=== PATIENT | female | born 1990 | race Caucasian/White ===

== ENCOUNTER 2020-10-21 16:13 | Emergency (ER) | payer OTHER, SELFPAY ==
[2020-10-21 16:22] VITALS: BP 127/85; PULSE 98; RESP 16; TEMP 36; O2SAT 96; BMI 27.9
--- NOTE | 2020-10-21 17:15 | ED.NAVMDI ---
HPI - Nausea/Vomiting/Diarrhea General Chief complaint: Nausea/Vomiting/Diarrhea Stated complaint: med reaction Time Seen by Provider: 10/21/20 16:45 Source: patient Mode of arrival: ambulatory Limitations: no limitations History of Present Illness HPI Narrative: 29-year-old female with past medical history of diabetes presents with nausea, vomiting, for several days. Started Trulicity on Thursday. She does not describe any fevers, chills, chest pain or pressure, palpitations, abdominal distention, dysuria, hematuria, constipation, hematochezia, melena, dizziness, lightheadedness, or edema. MD elicited complaint: nausea, vomiting and diarrhea Onset (ago): day(s) Description of vomiting: watery and bilious Description of diarrhea: watery Associated nausea: Yes Associated abdominal pain: No Pain consistency: intermittent Severity: moderate Exacerbating factors: vomiting Context: new medication Associated symptoms: denies other symptoms Treatment prior to arrival: none Related Data Previous Rx's Medication Instructions Recorded nitrofurantoin monohyd/m-cryst 100 mg PO Q12H 7 Days #14 cap 10/21/20 [Macrobid] ondansetron HCl [Zofran] 4 mg PO Q8H PRN #10 tab 10/21/20 phenazopyridine [Pyridium] 200 mg PO TID PRN #6 tab 10/21/20 Allergies Allergy/AdvReac Type Severity Reaction Status Date / Time shellfish derived Allergy Severe SWELLING, Verified 10/21/20 16:24 [SHELLFISH DERIVED] DIFFICULTY BREATHING Review of Systems Review of Systems: Constitutional: No Weight loss, No Fever, No Chills, No Night Sweats, No Fatigue, No Malaise ENT/Mouth: No Hearing loss, No Ear Pain, No Nasal Congestion, No Sinus Pain, No Hoarseness, No sore throat, No Rhinorrhea, No Swallowing Difficulty Eyes: No Eye Pain, No Swelling, No Redness, No Foreign Body, No Discharge, No Vision Changes Cardiovascular: No Chest Pain, No SOB, No Dyspnea on Exertion, No Orthopnea, No Edema, No Palpitations Respiratory: No Cough, No Sputum, No Wheezing, No Smoke Exposure, No Dyspnea Gastrointestinal: Positive Nausea, Positive Vomiting, positive Diarrhea, positive abdominal Pain, No Hematochezia, No Melena Genitourinary: no irregular bleeding, No Dysuria, No Urinary Frequency, No Hematuria, No Urinary Incontinence, No Urgency, No Flank Pain, No Urinary Flow Changes, No Hesitancy Musculoskeletal: No joint pain, No Myalgias, No Joint Swelling Skin: No Skin Lesions, No rash Neuro: No Weakness, No Numbness, No Paresthesias, No Loss of Consciousness, No Dizziness, No Headache Psych: No Anxiety/Panic, No Depression, No SI/HI/AH/VH, No Social Issues Heme/Lymph: No Bruising, No Bleeding,No Lymphadenopathy Endocrine: No Polyuria, No Polydipsia, No Temperature Intolerance Yes all other systems are reviewed and are negative Gastrointestinal: Gastrointestinal: Reports nausea PMFSH Past Medical History Attestation statement: The following information was validated with the patient. Source: old records reviewed Medical History Diabetes Social History Social History Alcohol intake: never Patient Tobacco Use Status: Never used Tobacco Use of substances other than those prescribed or required for medical reasons: No Advance Directives: No Advance Directives Information Provided: Yes Patient : No Physical Exam Vital Signs: Vital Signs: Last Vital Signs Temp 96.8 F 10/21/20 17:32 Pulse 88 10/21/20 17:32 Resp 16 10/21/20 17:32 BP 92/55 L 10/21/20 17:32 Pulse Ox 96 10/21/20 17:32 Body Mass Index 27.9 Appearance: Alert. Oriented X3. No acute distress. Head: Normal external exam. Normocephalic. Atraumatic. No [place] signs noted. No raccoon eyes noted Eyes: PERRLA. EOMI. Conjunctiva and sclera normal. Eyelids normal. ENT: Pharynx normal. Uvula midline. Moist mucous membranes. No trismus noted. No drooling noted. No muffled voice noted. Neck: Normal inspection. Neck supple. No adenopathy. CVS: Normal heart rate and rhythm. Heart sound normal. No murmurs noted. Pulses equal to all extremities. Respiratory: No respiratory distress. Painless inspiration. Breath sounds normal. No wheezes/rales/rhonchi noted. Chest nontender. No accessory muscle usage noted or decreased air movement noted. Abdomen: Soft and nontender. Bowel sounds normal in all 4 quadrants. No distention noted. No organomegaly noted. No visible injury noted. Back: No CVA tenderness. Full range of motion noted. Skin: Skin warm and dry. Normal skin color. Normal skin turgor. No rashes/lesions/lacerations noted. Extremities: No lower extremity edema. Extremities exhibit normal range of motion. Extremities nontender. Neuro: cranial nerves 2-12 intact, no focal neural deficits, strength 5/5 to all extremities, No motor deficit. No sensory deficit. Course Course Course Narrative: 29-year-old female with past medical history of diabetes presents with nausea vomiting and diarrhea after starting Trulicity on Thursday. Plan of care is for CBC, Chem 7, LFTs, lipase, fluid resuscitation and antiemetics. Lab values are unremarkable, urinalysis indicates UTI. Patient does state to feel much better after receiving some Zofran and some fluids. Will treat with Macrobid and Pyridium. Patient does not report any urinary symptoms. Lipase mildly elevated, discussion with patient regarding mild pancreatitis and for patient to follow up with the person who prescribed the Trulicity to discontinue this medication patient verbalized understanding of and agrees to plan of care discharge home. MDM - Nausea/Vomiting/Diarrhea Lab Data Result diagrams: 10/21/20 17:23 10/21/20 17:23 Labs: Lab Results 10/21/20 10/21/20 10/21/20 Range/Units 17:23 17:23 17:25 WBC 10.5 (4.8-10.8) X10*3/uL RBC 4.71 (4.20-5.50) X10*6/uL Hgb 13.6 (12.0-16.0) g/dl Hct 41.6 (37-47) % MCV 88.3 (80-98) fL MCH 28.9 (27.0-33.0) pg MCHC 32.7 (31.0-35.0) g/dl RDW 12.4 (11.0-16.0) % Plt Count 274 (160-400) X10*3/uL MPV 10.7 (9.4-12.3) fL Immature Gran % (Auto) 0.3 (0.0-0.4) % Neut % (Auto) 65.4 (45-73) % Lymph % (Auto) 28.2 (20-40) % [place] % (Auto) 5.1 (2-11) % Eos % (Auto) 0.8 (0-4) % Baso % (Auto) 0.2 (0-2) % Lymph # (Auto) 3.0 (1.2-4.9) X10*3/uL [place] # (Auto) 0.5 (0.1-1.2) X10*3/uL Eos # (Auto) 0.1 (0.0-0.4) X10*3/uL Baso # (Auto) 0.0 (0.0-0.2) X10*3/uL Abs Immat Gran (auto) 0.03 (0.00-0.03) X10*3/uL Absolute Neuts (auto) 6.8 (2.0-8.3) X10*3/uL Absolute Nucleated RBC 0.000 (0.0-0.012) X10*3/uL Nucleated RBC % (auto) 0.0 (0.0-0.2) /100WBC Sodium 136 (135-145) mmol/L Potassium 3.9 (3.3-5.1) mmol/L Chloride 102 (96-108) mmol/L Carbon Dioxide 26 (22-29) mmol/L Anion Gap 12 (12-20) BUN 11 (9-16) mg/dL Creatinine 0.71 (0.5-1.4) mg/dL Estim Creat Clear Calc 116.2 Estimated GFR > 60 Random Glucose 164 H (60-115) mg/dL Calcium 9.2 (8.4-10.2) mg/dL Total Bilirubin 0.7 (0.0-1.0) mg/dL Direct Bilirubin 0.3 (0.0-0.5) mg/dL AST 13 (5-31) U/L ALT 25 (0-31) U/L Alkaline Phosphatase 66 (39-117) U/L Total Protein 6.9 (6.5-8.0) g/dL Albumin 4.2 (3.5-5.0) g/dL Lipase 119 H (8-78) U/L Urine Color Urine Appearance Urine pH (5.0-8.0) Ur Specific [place] (1.005-1.025) Urine Protein (NEG-TRACE) MG/DL Urine Glucose (UA) (NEG) MG/DL Urine Ketones (NEG) MG/DL Urine Blood (NEG) Urine Nitrite (NEG) Ur Leukocyte Esterase (NEG) Urine RBC (0) /HPF Urine WBC (0-4) /HPF Ur Squamous Epith Cells /LPF Urine Bacteria /LPF Urine Test (NEGATIVE) Coronavirus (PCR) NEGATIVE (Negative) Influenza Type A (PCR) NEGATIVE (Negative) Influenza Type B (PCR) NEGATIVE (Negative) RSV RNA Qual (PCR) NEGATIVE (Negative) 10/21/20 10/21/20 Range/Units 17:42 17:42 WBC (4.8-10.8) X10*3/uL RBC (4.20-5.50) X10*6/uL Hgb (12.0-16.0) g/dl Hct (37-47) % MCV (80-98) fL MCH (27.0-33.0) pg MCHC (31.0-35.0) g/dl RDW (11.0-16.0) % Plt Count (160-400) X10*3/uL MPV (9.4-12.3) fL Immature Gran % (Auto) (0.0-0.4) % Neut % (Auto) (45-73) % Lymph % (Auto) (20-40) % [place] % (Auto) (2-11) % Eos % (Auto) (0-4) % Baso % (Auto) (0-2) % Lymph # (Auto) (1.2-4.9) X10*3/uL [place] # (Auto) (0.1-1.2) X10*3/uL Eos # (Auto) (0.0-0.4) X10*3/uL Baso # (Auto) (0.0-0.2) X10*3/uL Abs Immat Gran (auto) (0.00-0.03) X10*3/uL Absolute Neuts (auto) (2.0-8.3) X10*3/uL Absolute Nucleated RBC (0.0-0.012) X10*3/uL Nucleated RBC % (auto) (0.0-0.2) /100WBC Sodium (135-145) mmol/L Potassium (3.3-5.1) mmol/L Chloride (96-108) mmol/L Carbon Dioxide (22-29) mmol/L Anion Gap (12-20) BUN (9-16) mg/dL Creatinine (0.5-1.4) mg/dL Estim Creat Clear Calc Estimated GFR Random Glucose (60-115) mg/dL Calcium (8.4-10.2) mg/dL Total Bilirubin (0.0-1.0) mg/dL Direct Bilirubin (0.0-0.5) mg/dL AST (5-31) U/L ALT (0-31) U/L Alkaline Phosphatase (39-117) U/L Total Protein (6.5-8.0) g/dL Albumin (3.5-5.0) g/dL Lipase (8-78) U/L Urine Color YELLOW Urine Appearance HAZY Urine pH 6.0 (5.0-8.0) Ur Specific [place] >= 1.030 H (1.005-1.025) Urine Protein 1+ H (NEG-TRACE) MG/DL Urine Glucose (UA) 250 H (NEG) MG/DL Urine Ketones 15 (NEG) MG/DL Urine Blood NEG (NEG) Urine Nitrite POS H (NEG) Ur Leukocyte Esterase NEG (NEG) Urine RBC 0 (0) /HPF Urine WBC 1-4 (0-4) /HPF Ur Squamous Epith Cells 2+ /LPF Urine Bacteria 4+ /LPF Urine Test NEGATIVE (NEGATIVE) Coronavirus (PCR) (Negative) Influenza Type A (PCR) (Negative) Influenza Type B (PCR) (Negative) RSV RNA Qual (PCR) (Negative) Discharge Plan Discharge Clinical Impression: Urinary tract infection Qualifiers: Urinary tract infection type: acute cystitis Hematuria presence: without hematuria Qualified Code(s): N30.00 - Acute cystitis without hematuria Patient Disposition: Home, Self-Care Instructions: Urinary Tract Infection in Women (ED) Additional Instructions: You were evaluated for nausea vomiting and diarrhea that started after using Trulicity. Please follow-up with the doctor or prescriber that gave you the prescription for Trulicity. Please let them know your side effects. Your blood work is normal, your liver enzymes are normal. Your lipase is mildly elevated. Please drink plenty of fluids and stop using Trulicity. Urinalysis is positive for UTI. Please take Macrobid twice a day for the next 7 days. Use Pyridium as needed for bladder spasms and pain. I prescribed Zofran, please take this medication as needed for nausea and vomiting. Thank you for choosing this emergency department for evaluation. Please follow-up with primary care physician as needed. Return to the emergency department for any new, concerning, or worsening symptoms. Prescriptions: New nitrofurantoin monohyd/m-cryst [Macrobid] 100 mg capsule 100 mg PO Q12H 7 Days Qty: 14 RF: 0 ondansetron HCl [Zofran] 4 mg tablet 4 mg PO Q8H PRN (Reason: nausea and vomiting) Qty: 10 RF: 0 phenazopyridine [Pyridium] 200 mg tablet 200 mg PO TID PRN (Reason: pain) Qty: 6 RF: 0 Stand Alone Forms: Work/School Release Interventions: ED Discharge Assessment Last Done: 10/21/20 19:03 Discharge Date/Time: 10/21/20 19:04
[2020-10-21] MEDS: ondansetron HCL 4 MG/2 ML VIAL IVPUSH (17:29)
[2020-10-21] MEDS: Ketorolac Tromethamine 30 MG/ML VIAL IVPUSH (17:30)
[2020-10-21] MEDS: 0.9 % Sodium Chloride 1,000 ML 999 ML IVCONT (17:31)
[2020-10-21 17:32] VITALS: BP 92/55; PULSE 88; RESP 16; TEMP 36; O2SAT 96
[2020-10-21 17:35] LABS: MANUAL DIFF FLAG NO
[2020-10-21 17:40] LABS: Basophils Percent Auto 0.2 % (0-2); Eosinophils Absolute Auto 0.1 X10*3/uL (0.0-0.4); Eosinophils Percent Auto 0.8 % (0-4); Hematocrit 41.6 % (37-47); Hemoglobin 13.6 g/dl (12.0-16.0); Imm Gran Abs Auto 0.03 X10*3/uL (0.00-0.03); Imm Gran Pct Auto 0.3 % (0.0-0.4); Lymphocytes Percent Auto 28.2 % (20-40); Mean Corpuscular HGB Conc 32.7 g/dl (31.0-35.0); Mean Corpuscular Hemoglobin 28.9 pg (27.0-33.0); Mean Corpuscular Volume 88.3 fL (80-98); Mean Platelet Volume 10.7 fL (9.4-12.3); Monocytes Absolute Auto 0.5 X10*3/uL (0.1-1.2); Monocytes Percent Auto 5.1 % (2-11); Neutrophils Absolute Auto 6.8 X10*3/uL (2.0-8.3); Neutrophils Percent Auto 65.4 % (45-73); Platelet Count 274 X10*3/uL (160-400); Red Blood Count 4.71 X10*6/uL (4.20-5.50); Red Cell Distribution Width 12.4 % (11.0-16.0); White Blood Count 10.5 X10*3/uL (4.8-10.8)
[2020-10-21 18:03] LABS: Glucose Urine UA 250 MG/DL (NEG); Leukocyte Esterase Urine NEG (NEG); Nitrite Urine POS (NEG); Specific Gravity - Urine >= 1.030 (1.005-1.025); UACC Culture Trigger YES; Urine Blood NEG (NEG); Urine Ketones 15 MG/DL (NEG); Urine Protein 1+ MG/DL (NEG-TRACE)
[2020-10-21 18:04] LABS: Appearance Urine HAZY; Bacteria Urine 4+ /LPF; Color Urine YELLOW; RBC Urine 0 /HPF (0); Squamous Epithelial Cell Urine 2+ /LPF
[2020-10-21 18:05] LABS: Anion Gap 12 (12-20); Blood Urea Nitrogen 11 mg/dL (9-16); Calcium 9.2 mg/dL (8.4-10.2); Carbon Dioxide 26 mmol/L (22-29); Chloride 102 mmol/L (96-108); Creatinine Clr Calc Pharmacy 116.2; Estimated Glomerular Filt Rate > 60; Glucose Random 164 mg/dL (60-115); Potassium 3.9 mmol/L (3.3-5.1); Sodium 136 mmol/L (135-145)
[2020-10-21 18:10] LABS: UPreg QC Valid YES; Urine Pregnancy NEGATIVE (NEGATIVE)
[2020-10-21 18:14] LABS: Influenza A PCR NEGATIVE (Negative); Influenza B PCR NEGATIVE (Negative); Resp Syncy Virus RNA Qual PCR NEGATIVE (Negative); SARS COV2 PCR INHOUSE NEGATIVE (Negative)
[2020-10-21 18:36] LABS: Alanine Aminotransferase 25 U/L (0-31); Albumin Level 4.2 g/dL (3.5-5.0); Alkaline Phosphatase 66 U/L (39-117); Aspartate Amino Transferase 13 U/L (5-31); Bilirubin Direct 0.3 mg/dL (0.0-0.5); Bilirubin Total 0.7 mg/dL (0.0-1.0); Total Protein 6.9 g/dL (6.5-8.0)
[2020-10-21] MEDS: Nitrofurantoin Monohyd/M-Cryst 100 MG CAPSULE PO (18:44)
[2020-10-21 18:48] LABS: Lipase 119 U/L (8-78)
== END 2020-10-21 19:04 | disposition home or self-care (01) ==
PROVIDERS: Nurse Practitioner Family; Emergency Provider Internal Medicine
DX: N30.00 Acute cystitis without hematuria (principal); Z20.822 Contact with and (suspected) exposure to COVID-19; R11.2 Nausea with vomiting, unspecified; R19.7 Diarrhea, unspecified; E11.9 Type 2 diabetes mellitus without complications
CPT/HCPCS: 0241U; 36415; 80048; 80076; 81001; 81003; 81025; 83690; 85025; 87086; 87088; 87186; 96361; 96374; 96375; 99284; 99285; J1885; J2405

== ENCOUNTER 2020-12-29 12:27 | Emergency (ER) | payer OTHER, SELFPAY ==
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
[2020-12-29 12:33] VITALS: BP 103/72; PULSE 86; RESP 16; TEMP 36.6; O2SAT 98; BMI 26.9
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
[2020-12-29 14:35] LABS: UPreg QC Valid YES; Urine Pregnancy NEGATIVE (NEGATIVE)
== END 2020-12-29 15:36 | disposition home or self-care (01) ==
PROVIDERS: Physician Assistant; Emergency Provider Emergency Medicine Emergency Medical Services
DX: S16.1XXA Strain of muscle, fascia and tendon at neck level, initial encounter (principal); E11.9 Type 2 diabetes mellitus without complications; V89.2XXA Person injured in unspecified motor-vehicle accident, traffic, initial encounter; Y93.9 Activity, unspecified; Y92.411 Interstate highway as the place of occurrence of the external cause; Y99.9 Unspecified external cause status
CPT/HCPCS: 70450; 72125; 81025; 99283; 99284

== ENCOUNTER 2022-05-01 12:42 | Emergency (ER) | payer OTHER, SELFPAY ==
[2022-05-01 12:51] VITALS: BP 128/60; PULSE 98; O2SAT 98
[2022-05-01 13:09] LABS: MANUAL DIFF FLAG NO
[2022-05-01 13:10] VITALS: BP 110/56; PULSE 92; RESP 17; TEMP 37.1; O2SAT 99
[2022-05-01 13:14] LABS: Basophils Percent Auto 0.2 % (0-2); Hematocrit 32.1 % (37.0-47.0); Imm Gran Abs Auto 0.01 X10*3/uL (0.00-0.03); Imm Gran Pct Auto 0.2 % (0.0-0.4); Lymphocytes Absolute Auto 0.3 X10*3/uL (1.2-4.9); Lymphocytes Percent Auto 5.2 % (20-40); Mean Corpuscular HGB Conc 34.3 g/dl (31.0-35.0); Mean Corpuscular Hemoglobin 29.2 pg (27.0-33.0); Mean Corpuscular Volume 85.1 fL (80.0-98.0); Monocytes Absolute Auto 0.3 X10*3/uL (0.1-1.2); Monocytes Percent Auto 5.5 % (2-11); Neutrophils Absolute Auto 5.5 x10*3/uL (2.0-8.3); Neutrophils Percent Auto 88.9 % (45-73); Platelet Count 222 X10*3/uL (160-400); Red Blood Count 3.77 X10*6/uL (4.20-5.50); White Blood Count 6.2 X10*3/uL (4.8-10.8)
[2022-05-01] MEDS: 0.9 % Sodium Chloride 1,000 ML 999 ML IVCONT (13:21)
--- NOTE | 2022-05-01 13:22 | ED.GENADULT ---
HPI - General Adult General Chief complaint: General Medical Stated complaint: +COVID, [id number], 20weeks preg per EMS Time Seen by Provider: 05/01/22 12:49 Source: patient Mode of arrival: ambulatory Limitations: no limitations History of Present Illness HPI narrative: Patient is a 31 year old female at approximately 11 weeks gestation with a PMH of type II Diabetes mellitus currently on metformin and gestational diabetes presents to the ED today after a positive home COVID test last night. Patient states that her 8 year old son tested positive for COVID two days ago but reports nobody else is sick at home. Patient reports severe body aches and lower back pain as well as throbbing headache and sensitivity to light. Patient also has associated symptoms of nausea and two episodes of vomiting prior to coming to the ED. Patient was seen 3 days ago via Telehealth by [facility] of which her estimated delivery date was noted to be 11/20/2022. Patient states that she does not remember when her LMP was. Patient reports prior history of spontaneous at about 12 weeks gestation and induced at 8 weeks gestation. Patient was diagnosed with gestational diabetes when she was with her 8 year old living son who was conceived via Ceasaren section without any complications after surgery. Patient denies fever, abdominal pain, abnormal vaginal discharge, vaginal bleeding or fluid gush from vagina. Patient denies any other issues, concerns or complains at this time. MD complaint: covid + at home now c N/V and body aches Onset (ago): hour(s) (at 3am this jaron. ) Location: head and back Radiation: non-radiation Severity: severe Severity scale (1-10): 8 Quality: aching Pain Consistency: constant Relieving factors: none Exacerbating factors: none Associated symptoms: headaches, loss of appetite, malaise, nausea/vomiting and weakness Treatments prior to arrival: none Related Data Previous Rx's Medication Instructions Recorded nitrofurantoin 100 mg PO Q12H 7 days #14 caps 10/21/20 monohydrate/macrocrystals 100 mg capsule (Macrobid) ondansetron HCl 4 mg tablet 4 mg PO Q8H PRN nausea and 10/21/20 (Zofran) vomiting #10 tabs phenazopyridine 200 mg tablet 200 mg PO TID PRN pain 6 doses #6 10/21/20 (Pyridium) tabs cyclobenzaprine 10 mg tablet 10 mg PO TID PRN muscle spasm #10 12/29/20 tabs ibuprofen 600 mg tablet 600 mg PO Q8H PRN pain #14 tabs 12/29/20 lidocaine 5 % topical patch 1 patch topical DAILY #15 ea 12/29/20 (Lidoderm) acetaminophen 500 mg tablet 1,000 mg PO QID PRN fever or pain 05/01/22 (Tylenol Extra Strength) #14 tabs ondansetron HCl 4 mg tablet 4 mg PO Q6-8H PRN nausea and 05/01/22 vomiting #20 tabs Allergies Allergy/AdvReac Type Severity Reaction Status Date / Time shellfish derived Allergy Severe SWELLING, Verified 10/21/20 16:24 [SHELLFISH DERIVED] DIFFICULTY BREATHING Review of Systems Review of Systems: Constitutional : No Weight loss, No Fever, No Chills, No Night Sweats, No Fatigue, + Malaise ENT/Mouth : No Hearing loss, No Ear Pain, No Nasal Congestion, No Sinus Pain, No Hoarseness, No sore throat, No Rhinorrhea, No Swallowing Difficulty Eyes: No Eye Pain, No Swelling, No Redness, No Foreign Body, No Discharge, No Vision Changes Cardiovascular : No Chest Pain, No SOB, No Dyspnea on Exertion, No Orthopnea, No Edema, No Palpitations Respiratory : No Cough, No Sputum, No Wheezing, No Smoke Exposure, No Dyspnea Gastrointestinal : + Nausea, + Vomiting, No Diarrhea, No Constipation, No abdominal Pain, No Hematochezia, No Melena Genitourinary : no irregular bleeding, No Dysuria, No Urinary Frequency, No Hematuria, No Urinary Incontinence, No Urgency, No Flank Pain, No Urinary Flow Changes, No Hesitancy Musculoskeletal : + joint pain, + Myalgias, No Joint Swelling Skin : No Skin Lesions, No rash Neuro : + Weakness, No Numbness, No Paresthesias, No Loss of Consciousness, + Dizziness, + Headache Psych : No Anxiety/Panic, No Depression, No SI/HI/AH/VH, No Social Issues, Heme/Lymph: No Bruising, No Bleeding,No Lymphadenopathy Endocrine : No Polyuria, No Polydipsia, No Temperature Intolerance Yes all other systems are reviewed and are negative [facility] Past Medical History Attestation statement: The following information was validated with the patient. Source: old records reviewed and nursing notes reviewed Medical History Diabetes : 4 Para: 1 Total number of abortions (spontaneous and elective): 2 Hx Last Menstrual Period: Patient unsure of LMP Social History Social History Alcohol intake: never Patient Tobacco Use Status: Never used Tobacco Advance Directives: No Advance Directives Information Provided: No Physical Exam ED Vital Signs: Vital Signs - 24 hr 05/01/22 13:10 Temperature 98.8 F Pulse Rate 92 Respiratory Rate 17 Blood Pressure 110/56 L Pulse Oximetry 99 Oxygen Delivery Method Room Air BMI result Body Mass Index 27.6 vital signs have been reviewed and appeared to be correct. Blood pressure is 110/56. Heart rate normal. Respiration rate normal. Temperature normal. Oxygen saturation normal. Appearance: Alert. Oriented X3. No acute respiratory distress. Patient was uncomfortable and assuming different laying positions in hospital bed. Head: Normal external exam. Normocephalic. Atraumatic. Eyes: PERRLA. EOMI. Conjunctiva and sclera normal. Eyelids normal. ENT: EAC normal. TM's Normal. Pharynx normal. Uvula midline. Moist mucous membranes. No lesions/ulcerations or masses noted on the tongue. Normal voice. No trismus noted. No drooling noted. No muffled voice noted. Neck: Normal inspection. Neck supple. FROM. Thyroid Normal. No tracheal deviation noted. No crepitus is noted. No meningeal signs. No neck mass noted. No signs of trauma noted. CVS: Normal heart rate and rhythm. Heart sound normal. No murmurs/rales/gallops. Respiratory: No respiratory distress. Painless inspiration. Breath sounds normal. No wheezes/rales/rhonchi noted. Chest nontender. No signs of trauma noted. No accessory muscle usage noted or decreased air movement noted. No signs of trauma. Abdomen: Soft and non tender. Bowel sounds normal in all 4 quadrants. No visible injury noted. No guarding. Back: No CVA tenderness. Full range of motion noted. Non tender. No signs of trauma. Patient neuro intact bilaterally and distally on all 4 extremities. No rashes/lesion/induration/fluctuance or signs of infection noted. Skin: Skin warm and dry. Normal skin color. Normal skin turgor. No rashes/lesions/lacerations noted. Extremities: No lower extremity edema. No calf tenderness is noted. Extremities exhibit normal range of motion and nontender. Neuro: Oriented X 3. No motor deficit. No sensory deficit. Normal steady gait. No focal neuro deficits noted. CN's II-XII intact bilaterally? Vascular: + radial pulses/+ 2 distal pedal pulses/+2 dorsalis pedis b/l. Normal cap refill. No cyanosis noted to upper extremity nails and lower extremity toes nails. Const General: cooperative, no acute distress and alert Orientation/consciousness: patient oriented x3 Limitations: no limitations Neuro General: patient oriented x3 Course Course Course Narrative: Patient is a 31 year old female at approximately 11 weeks gestation with a PMH of type II Diabetes mellitus currently on metformin and gestational diabetes presents to the ED today after a positive home COVID test last night. Patient reports associated symptoms of severe body aches and lower back pain as well as nausea, vomiting, throbbing headache and sensitivity to light. Patient denies fever,abdominal pain, abnormal vaginal discharge, vaginal bleeding or fluid gush from vagina. Patient had a BP of 110/56 with all other vitals within normal limit. On physical exam , patient was alert and oriented in no acute respiratory distress but was uncomfortable and changing positions in bed. Her abdomen was soft and non tender to palpation with bowel sounds noted in all 4 quadrants. Patient had active FROM of upper and lower extremities with no tenderness to palpation of patient's lower back. Plan: IV fluids Zofran 4mg PO q8h prn for nausea Labs; CBCw/ diff: RBC -3.77, H/H - 11/32 CMP- Sodium- 132, CO2- 21, BUN- 5, random glucose- 190, magnesium- 1.3, total protein- 6.0 beta HCG, quant- [id number]/ml -Patient has been referred to [facility] for monoclonal antibody therapy due to high risk factors including current and history of type II diabetes. Reevaluation(s) Reevaluation #1: Repeat labs have improved patient's sodium is now 135. Her magnesium is 2.0. Her UA revealed glucose and ketones otherwise no evidence of UTI. Acetone level was negative. Patient now tolerating p.o. fluids/solids. Therefore at this time patient can be discharged with instructions return if any new or worsening symptoms to follow up with OBGYN/ PCP and to continue taking her previously prescribed medications as previously prescribed along with the short course of Zofran. Patient understands agrees with this plan. Time: 18:49 Medications Administered Discontinued Medications Generic Name Dose Route Start Last Admin Trade Name Roberta PRN Reason Stop Dose Admin Acetaminophen 975 mg 05/01/22 14:18 05/01/22 15:50 Acetaminophen 325 Mg Tablet PO 05/01/22 14:19 Not Given ONCE ONE Acetaminophen 975 mg 05/01/22 15:18 05/01/22 15:51 Acetaminophen 325 Mg Tablet PO 05/01/22 15:19 975 mg ONCE ONE Administration Sodium Chloride 1,000 mls @ 999 mls/hr 05/01/22 13:00 05/01/22 14:48 Ns IVCONT 05/01/22 14:00 Infused .Q1H1M NGOC Infusion Magnesium Sulfate 2 gm in 50 mls @ 25 mls/hr 05/01/22 14:20 05/01/22 17:23 Magnesium Sulfate/H2o IV 05/01/22 16:19 Infused ONCE ONE Infusion Ondansetron HCl 4 mg 05/01/22 12:56 05/01/22 13:27 Ondansetron Hcl 4 Mg/2 Ml Vial IVPUSH 05/01/22 12:57 4 mg ONCE ONE Administration Medical Decision Making Medical Decision Making Discussion of management with other physician/healthcare provider/other source (e.g., hospitalist, sap pp consultant, behavioral health): Discussion w/other physician/healthcare provider Management of the patient was discussed with: Counseling Center Manager (Dr. Gerry RUSSELL) Recommended the following to MARYELLEN Oates:? Check heart rate, IV hydration, Zofran p.r.n. nausea and vomiting, magnesium replacement, then p.o. challenge with diabetic diet. if tolerated restart the patient on her usual metformin , diabetic diet , and discharge home with the following instructions: Zofran 4 mg p.o. Q 8 p.r.n. nausea and vomiting, Tylenol 650 mg p.o. q.6 p.r.n. fever 100.4 and above to prevent the risk of teratogenicity of fever in the 1st trimester in . The patient is a candidate for monoclonal antibodies, request to be sent on the patient be have to receive monoclonal antibodies as soon as possible at [facility], The patient is to come back to emergency room in case of fever above 100.4, nausea and vomiting, shortness of breath, vaginal bleeding or pelvic pain, Close follow-up with her OBGYN Lab Attestation: I reviewed the patient's lab results. Non-ED record review: Review of External (Non-ED) Record ([facility] was consulted to find out the patient's gestational age via phone) Chronic conditions affecting care (e.g., diabetes, HTN): Chronic conditions affecting care (e.g., diabetes, HTN) Patient?s care impacted by: Diabetes Critical Care Time Critical Care Time Critical Care Time: Yes Total Critical Care Time: 60 Attestation: I personally attest to this time spent taking care of the patient Discharge Plan Discharge Clinical Impression: COVID-19, Low blood magnesium level, Acute dehydration, Nausea & vomiting Patient Disposition: Home, Self-Care Additional Instructions: Tylenol 650 mg p.o. q.6 p.r.n. fever 100.4 and above to prevent the risk of teratogenicity of fever in the 1st trimester in . return if any new or worsening symptoms. Follow up with your OBGYN. Prescriptions: New ondansetron HCl 4 mg tablet 4 mg PO Q6-8H PRN (Reason: nausea and vomiting) Qty: 20 0RF acetaminophen [Tylenol Extra Strength] 500 mg tablet 1,000 mg PO QID PRN (Reason: fever or pain) Qty: 14 0RF No Action nitrofurantoin monohyd/m-cryst [Macrobid] 100 mg capsule 100 mg PO Q12H 7 Days Qty: 14 0RF Rx Instructions: must administer with a meal/food ondansetron HCl [Zofran] 4 mg tablet 4 mg PO Q8H PRN (Reason: nausea and vomiting) Qty: 10 0RF Rx Instructions: Please dispense sublingual tablets phenazopyridine [Pyridium] 200 mg tablet 200 mg PO TID PRN (Reason: pain) Qty: 6 0RF cyclobenzaprine 10 mg tablet 10 mg PO TID PRN (Reason: muscle spasm) Qty: 10 0RF lidocaine [Lidoderm] 5 % adhesive patch,medicated 1 patch topical DAILY Qty: 15 0RF Rx Instructions: leave on most painful area for up to 12 hrs ibuprofen 600 mg tablet 600 mg PO Q8H PRN (Reason: pain) Qty: 14 0RF Referrals: Physician,Nonstaff [Primary Care Provider] - 5 days (your pcp) Stand Alone Forms: Work/School Release
[2022-05-01 13:26] LABS: Alanine Aminotransferase 13 U/L (0-31); Albumin Level 3.7 g/dL (3.5-5.0); Alkaline Phosphatase 46 U/L (39-117); Anion Gap 12 (12-20); Aspartate Amino Transferase 13 U/L (5-31); Bilirubin Total 0.5 mg/dL (0.0-1.0); Blood Urea Nitrogen 5 mg/dL (9-16); Carbon Dioxide 21 mmol/L (22-29); Chloride 102 mmol/L (96-108); Estimated Glomerular Filt Rate > 60; Glucose Random 190 mg/dL (60-115); Potassium 3.4 mmol/L (3.3-5.1); Sodium 132 mmol/L (135-145)
[2022-05-01] MEDS: ondansetron HCL 4 MG/2 ML VIAL IVPUSH (13:27)
--- NOTE | 2022-05-01 13:41 | PC.NURSE ---
pt ambulatory from stretcher to bed , sts her headache is horrible sts she is sensitive to light and sound. sts she is approc 16-20 weeks however she has not has any ob-raise driller followup- labs pending including HCG and magnesium
[2022-05-01 13:49] LABS: HCG Quantitative 75690 mIU/mL
[2022-05-01 14:17] LABS: Magnesium 1.3 mg/dL (1.6-2.6)
--- NOTE | 2022-05-01 14:36 | P.CONOB_ITS ---
OB Consult Note - [facility] Data Service Date: 05/01/22 Primary Care Provider: Nonstaff Physician Elidia Carvajal was consulted on Hermelinda Quintanilla who is a 31 year old with unknown gestational a with a PMH of type II Diabetes mellitus currently on metformin presents to the ED today after a positive home COVID test last night. The patient is complaining of back pain, body aches and as well as throbbing headache and sensitivity to light, associated nausea and two episodes of vomiting prior to coming to the ED. The patient is 11 weeks of gestation, was seen at [facility] few weeks ago , and had an ultrasound with an EDC of 30 October 2022, but the patient is unsure. The patient denies fever, abdominal pain, abnormal vaginal discharge, vaginal bleeding or leakage of fluid. The patient not take her metformin last 2 days. In the emergency room on presentation 1 L of LR was given to the patient and the following workup was done: CBC showed no leukocytosis, H&H 11/32.1, normal platelets. Blood sugar of 190 with negative acetones, normal anion gap, repeat blood sugar 132 Magnesium 1.3 and sodium 132 OB PMFSH Past Medical History Medical History Diabetes Social History Social History Alcohol intake: never Patient Tobacco Use Status: Never used Tobacco Advance Directives: No Advance Directives Information Provided: No Meds Allergies Allergy/AdvReac Type Severity Reaction Status Date / Time shellfish derived Allergy Severe SWELLING, Verified 10/21/20 16:24 [SHELLFISH DERIVED] DIFFICULTY BREATHING Active Medications: Current Medications Magnesium Sulfate (Magnesium Sulfate/H2o) 2 gm in 50 mls @ 25 mls/hr IV ONCE ONE Stop: 05/01/22 16:19 OB Flowsheet OB Flowsheet & Tools History 4 Elective abortions Para 1 Spontaneous abortions Hx # Term Pregnancies Ectopic pregnancies Hx # Pregnancies Multiple births OB Physical Exam Physical Exam Additional Comments: Physical exam reported by MARYELLEN Oates to be within normal OB Consult Results Labs CBC & Chem 7: 05/01/22 13:04 05/01/22 13:04 Labs: Short CBC 05/01/22 Range/Units 13:04 WBC 6.2 (4.8-10.8) X10*3/uL Hgb 11.0 L (12.0-16.0) g/dl Hct 32.1 L (37.0-47.0) % Plt Count 222 (160-400) X10*3/uL BMP 05/01/22 13:04 Sodium 132 L Potassium 3.4 Chloride 102 Carbon Dioxide 21 L BUN 5 L Creatinine 0.69 Calcium 9.0 Liver Function 05/01/22 Range/Units 13:04 Total Bilirubin 0.5 (0.0-1.0) mg/dL AST 13 (5-31) U/L ALT 13 (0-31) U/L Alkaline Phosphatase 46 (39-117) U/L Albumin 3.7 (3.5-5.0) g/dL OB - CN: A/P Assessment and Plan (1) : Status: Acute Assessment and Plan: Recommended the following to MARYELLEN Oates: Check heart rate, IV hydration, Zofran p.r.n. nausea and vomiting, magnesium replacement, then p.o. challenge with diabetic diet. if tolerated restart the patient on her usual metformin , diabetic diet , and discharge home with the following instructions: Zofran 4 mg p.o. Q 8 p.r.n. nausea and vomiting, Tylenol 650 mg p.o. q.6 p.r.n. fever 100.4 and above to prevent the risk of teratogenicity of fever in the 1st trimester in . The patient is a candidate for monoclonal antibodies, request to be sent on the patient be have to receive monoclonal antibodies as soon as possible at [facility], The patient is to come back to emergency room in case of fever above 100.4, nausea and vomiting, shortness of breath, vaginal bleeding or pelvic pain, Close follow-up with her OBGYN I spent a total of 20 minutes reviewing the chart, communicating to the ER provider and documenting in the medical record
[2022-05-01 14:46] LABS: Acetone, serum QL Negative (Negative)
[2022-05-01] MEDS: Magnesium Sulfate/H2O 2 GM/50 ML PIGGYBACK IV (14:46)
[2022-05-01 15:30] LABS: Glucose, Whole Blood 133 mg/dL (60-115)
[2022-05-01] MEDS: Acetaminophen 325 MG TABLET 975 MG PO (15:51)
[2022-05-01 16:46] VITALS: BMI 27.6
--- NOTE | 2022-05-01 17:23 | PC.NURSE ---
pt rec 2gm magnesium via IV, pt was able to tolerate crackers, gingerale, and string cheese without nausea and vomiting. sts he pain is much better talking on phone interacting appropriately with nurse. provider aware, repeat mag level to be collected
[2022-05-01 18:15] LABS: Appearance Urine Cloudy; Color Urine Yellow; Glucose Urine UA >=1000 mg/dL (Negative); Leukocyte Esterase Urine Negative (Negative); Nitrite Urine Negative (Negative); Specific Gravity - Urine >= 1.030 (1.005-1.025); UMIC TRIGGER UACC YES; Urine Blood Negative (Negative); Urine Ketones 80 mg/dL (Negative); Urine Protein Trace mg/dL (Neg-Trace)
[2022-05-01 18:20] LABS: Bacteria Urine 4+ (None Seen); Hyaline Casts Urine 0-2 /LPF (0-2); RBC Urine 0-2 /HPF (0-2); WBC Urine 0-5 /HPF (0-5)
[2022-05-01 18:34] LABS: Anion Gap 11 (12-20); Blood Urea Nitrogen 5 mg/dL (9-16); Calcium 8.2 mg/dL (8.4-10.2); Carbon Dioxide 22 mmol/L (22-29); Chloride 105 mmol/L (96-108); Creatinine Clr Calc Pharmacy 127.8; Estimated Glomerular Filt Rate > 60; Glucose Random 243 mg/dL (60-115); Potassium 3.4 mmol/L (3.3-5.1); Sodium 135 mmol/L (135-145)
== END 2022-05-01 19:27 | disposition home or self-care (01) ==
PROVIDERS: Physician Assistant Medical; Emergency Provider Emergency Medicine
DX: O98.511 Other viral diseases complicating pregnancy, first trimester (principal); Z3A.11 11 weeks gestation of pregnancy; U07.1 COVID-19; Z79.899 Other long term (current) drug therapy
CPT/HCPCS: 36415; 80048; 80053; 81001; 82009; 82947; 83735; 84702; 85025; 96361; 96365; 96375; 99283; 99284; J2405; J3475

== ENCOUNTER 2022-05-30 22:56 | Emergency (ER) | payer OTHER, SELFPAY ==
--- NOTE | ~2022-05-30 | US_ITS ---
EXAMINATION: OBSTETRIC ULTRASOUND - SECOND TRIMESTER CLINICAL INFORMATION: Vaginal bleeding without cramping. COMPARISON: None TECHNIQUE: Transabdominal imaging of the uterus was performed utilizing najera scale and color doppler technique, with m-mode imaging. FINDINGS: Single live intrauterine fetus with cardiac activity detected at 156 bpm. movement is present. Amniotic fluid within normal limits, 7.36 cm. Anterior marginal placenta, grade 1/2. No perigestational hemorrhage. Cervix measures 4.6 cm and is closed. anatomy is normal. Biometric measurements as follows: Biparietal diameter: 3.23 cm corresponding to gestational age of 16 weeks 1 day. Head circumference: 12.24 cm corresponding to gestational age of 16 weeks 1 day. Abdominal circumference: 11.03 cm corresponding to a gestational age of 17 weeks, 0 days. Femur length: 2.03 cm corresponding to gestational age of 16 weeks, 1 day. Maternal ovaries normal in size and appearance. US/US OB limited IMPRESSION: * Single live intrauterine fetus with estimated gestational age by ultrasound of 16 weeks, 3 days, for an estimated date of delivery 11/12/2022. * Estimated weight 156 g (34th percentile). * Normal anatomy. * No perigestational hemorrhage. * Marginal placenta. Placentas usually rise through the second trimester, however consider follow-up to ensure.
[2022-05-30 23:03] VITALS: BP 115/66; PULSE 103; RESP 18; TEMP 36.4; O2SAT 99; BMI 25.7
--- OUTSIDE RECORDS SUMMARY | 2022-05-30 23:27 | XMS_ITS | Continuity of Care Document ---
:1990 Author Organization [facility] Address [address] [place] [id number]- Care Team Providers Name Role Phone Not on Staff, PCP Primary Care Physician Unavailable Encounter [facility] Date(s): 03/17/22 - 04/16/[address] [address]- Allergies, Adverse Reactions, Alerts Substance Reaction Severity Status Seafood Active Immunizations Given and Recorded Vaccine Date Status Refusal Reason tetanus/diphtheria/pertussis, acel(Tdap) 11/21/13 Given influenza virus vaccine, inactivated 07/19/13 Given Medications Alcohol Wipes See Instructions, # 200 each, Refills 2, Tot. Refills 2, Maintenance, PLEASE USE DIRECTED FOR FOUR TIMES DAILY BLOOD GLUCOSE MONITORING IN , 03/21/22 11:13:00 EDT, Supply, 166, cm, 03/21/2210:29:00 EDT, Height Start Date: 03/21/22 Status: OrderedFreedom lite meter [place] lite meter, See Instructions, # 1 each, Refills 0, Tot. Refills 0, Maintenance, Glucose monitoring during , 03/21/22 11:12:00 EDT, WWCL PATIENT, PLEASE PERFORM GLUCOMETER TEACHING, Supply, 166, cm, 03/21/22 10:29:00 EDT, Height Start Date: 03/21/22 Status: OrderedFREESTYLE LITE LANCETS FREESTYLE LITE LANCETS, See Instructions, # 200 each, Refills 2, Tot. Refills 2, Maintenance, GLUCOSE MONITORING 4 TIMES A DAY DURING , 03/21/22 11:13:00 EDT, Supply, 166, cm, 03/21/22 10:29:00 EDT, Height Start Date: 03/21/22 Status: OrderedFREESTYLE LITE STRIPS FREESTYLE LITE STRIPS, See Instructions, # 100 each, Refills 12, Tot. Refills 12, Maintenance, GLUCOSE MONITORING 4 TIMES PER DAY DURING THE , 04/01/22 9:07:00 ESTMARYELLEN APPROVED. Reference ID [id number]; 100 each per 25 day supply, Supply, 166,... Start Date: 04/01/22 Status: OrderedmetFORMIN 500 mg oral tablet 2 tablet = 1,000 mg, By Mouth, 2 times a day, # 60 tablet, 0 Refills, Maintenance, 03/21/22 11:29:00EDT, Tablet, Partial fill upon patient request if the prescription is for a schedule II opioid drug. Start Date: 03/21/22 Status: Orderedmultivitamin, Multivitamins oral tablet, chewable 1 tablet, Chew, Daily, # 90 tablet, 2 Refills, Maintenance, 04/01/22 9:12:00 EST, Chew Tablet, [facility], Partial fill upon patient request if the prescription is for a schedule II opioid drug., 1 tablet Chew Daily, 166, cm, 03/21/22 10... Start Date: 04/01/22 Status: OrderedPrenatal Multivitamins with Folic Acid 1 mg oral tablet 1 tablet, By Mouth, Daily, # 90 tablet, 0 Refills, Maintenance, 03/21/22 11:20:00 EDT, Tablet, [facility], Partial fill upon patient request if the prescription is for a schedule II opioid drug., 1 tablet By Mouth Daily, 166, cm, 2... Start Date: 03/21/22 Status: Orderedpyridoxine 25 mg oral tablet 1 tablet = 25 mg, By Mouth, 3 times a day, PRN Nausea & Vomiting, # 100 tablet, 8 Refills, Acute04/23/22 11:22:00 EST, 03/21/22 11:21:00 EDT, [facility], Partial fill upon patient request if the prescription is for a schedule II opioid... Start Date: 03/21/22 Stop Date: 04/23/22 Status: OrderedUnisom 25 mg oral tablet 1 tablet = 25 mg, By Mouth, Daily at bedtime, PRN for sleep, # 32 tablet, 0 Refills, Acute 04/23/22 11:22:00 EST, 03/21/22 11:21:00 EDT, Tablet, [facility], Partial fill upon patient request if the prescription is for a schedule II opioi... Start Date: 03/21/22 Stop Date: 04/23/22 Status: Ordered Problem List Condition Confirmation Course Effective Dates Status Health Stat us Informant Asthma Confirmed Active Gestational Confirmed Active diabetes Confirmed Active Diabetes mellitus, Confirmed Active type II Social History Social History Type Response Tobacco Use: quit 4 years ago. Sex Patient Care team information Care Team PersonnelName: Deysi Rollins RN Position: [facility] OB RN Member Role: Primary Care Nurse Name: Not on Staff, PCP Position: [facility] Physician (General Medicine) Member Role: PCP Care Team Related PersonsName: NASIM BONILLAIN Address: home [address] [place] [id number] Name: DENISE WHITTAKER Name: ABELINO RASHID Address: home [address] [place] [address] Name: DOTTY SINGH Address: home [address] [place] [address]
--- OUTSIDE RECORDS SUMMARY | 2022-05-30 23:27 | XMS_ITS | Continuity of Care Document ---
:1990 Author Organization [facility] Address [address] [place] [address]- Care Team Providers Name Role Phone Not on Staff, PCP Primary Care Physician Unavailable Encounter [facility] Date(s): 03/31/22 - 04/30/[address] [address]- Allergies, Adverse Reactions, Alerts Substance Reaction Severity [...] 03/21/2210:29:00 EDT, Height Start Date: 03/21/22 Status: Orderedaspirin 81 mg oral delayed release tablet 162 mg, 2, tablet, By Mouth, Daily, # 60 tablet, Refills 6, Tot. Refills 6, Maintenance, 04/29/22 20:12:00 EST, Route to Pharmacy Electronically, [facility], Partial fill upon patient request if the prescription is for a schedule II opio... Start Date: 04/29/22 Status: OrderedFreedom lite meter [place] lite meter, See Instructions, # 1 each, [...] PER DAY DURING THE , 04/01/22 9:07:00 EST PA APPROVED. Reference ID [id number]; 100 each per 25 day supply, Supply, [...] Refills, Maintenance, 04/01/22 9:12:00 EST, Chew Tablet, [facility], Partial fill upon patient request if the prescription is for a schedule II opioid drug., 1 tablet Chew Daily, 166, cm, 03/21/22 10... Start Date: 04/01/22 Status: OrderedPrenatal Multivitamins with Folic Acid 1 mg oral tablet 1 tablet, By Mouth, Daily, # 90 tablet, 0 Refills, Maintenance, 03/21/22 11:20:00 EDT, Tablet, [facility], Partial fill upon patient request if the prescription is for a schedule II opioid drug., 1 tablet By Mouth Daily, 166, cm, 2... Start Date: 03/21/22 Status: Ordered Problem List Condition Confirmation Course Effective Dates Status Health Stat us Informant Asthma Confirmed Active Confirmed Active Diabetes mellitus, Confirmed Active type II Social History Social History Type Response Tobacco Use: quit 4 years ago. Sex Patient Care team information Care Team PersonnelName: Ayo ARIAS, Deysi Position: [facility] OB RN Member Role: Primary Care Nurse Name: Not on Staff, PCP Position: [facility] Physician (General Medicine) Member Role: PCP Care Team Related PersonsName: MICHELLEHAROONNASIMIN Address: home [address] [place] [address] Name: DENISE WHITTAKER Name: ABELINO RASHID Address: home [address] [place] [address] Name: DOTTY SINGH Address: home [address] [place] [address]
--- OUTSIDE RECORDS SUMMARY | 2022-05-30 23:27 | XMS_ITS | Continuity of Care Document ---
:1990 Author Organization [facility] Address [address] [place] [address]- Care Team Providers Name Role Phone Not on Staff, PCP Primary Care Physician Unavailable [facility]counter [facility] Date(s): 04/11/22 - 05/11/22 [facility] [address] [place] [id number] [[email or web address] Allergies, Adverse Reactions, Alerts Substance Reaction Severity [...] 04/29/22 20:12:00 EST, Route to Pharmacy Electronically, [facility], Partial fill upon patient request if the prescription is for a schedule II opio... Start Date: 04/29/22 Status: OrderedFreedom lite meter [place] lite meter, See Instructions, # 1 each, [...] 04/01/22 9:07:00 EST PA APPROVED. Reference ID [id number]; 100 each per 25 day supply, Supply, [...] Refills, Maintenance, 04/01/22 9:12:00 EST, Chew Tablet, [facility], Partial fill upon patient request if the prescription is for a schedule II opioid drug., 1 tablet Chew Daily, 166, cm, 03/21/22 10... Start Date: 04/01/22 Status: OrderedPrenatal Multivitamins with Folic Acid 1 mg oral tablet 1 tablet, By Mouth, Daily, # 90 tablet, 0 Refills, Maintenance, 03/21/22 11:20:00 EDT, Tablet, [facility], Partial fill upon patient [...] Patient Care team information Care Team PersonnelName: Emilee Tillman RN Position: [facility] RN Member Role: Primary Care Nurse Name: Deysi Rollins RN Position: [facility] OB RN Member Role: Primary Care Nurse Name: Not on Staff, PCP Position: [facility] Physician (General Medicine) Member Role: PCP Care Team Related PersonsName: LAKIA BONILLA Address: home [address] [place] [id number] Name: DENISE WHITTAKER Name: ABELINO RASHID Address: home [address] [place] [address] Name: DOTTY SINGH Address: home [address] [place] [address]
--- OUTSIDE RECORDS SUMMARY | 2022-05-30 23:27 | XMS_ITS | Continuity of Care Document ---
:1990 Author Organization [facility] Address [address] [place] [address]- Care Team Providers Name Role Phone Not on Staff, PCP Primary Care Physician Unavailable Encounter [facility] Date(s): 04/29/22 - 05/29/22 [facility] [address] [place] [id number] Attending Physician: AdmLeonard lópez Admitting Physician: Admtr, Ar8 Referring Physician: Admtr, Ar8 Allergies, Adverse Reactions, Alerts Substance Reaction Severity Status Seafood Active Immunizations Given and Recorded Vaccine Date Status Refusal Reason tetanus/diphtheria/pertussis, acel(Tdap) 11/21/13 Given influenza virus vaccine, inactivated 07/19/13 Given Medications Albuterol (Eqv-Proventil HFA) 90 mcg/inh inhalation aerosol 2 puffs, Inhalation, Every 6 hours, # 8.5 Gm, 0 Refills, Maintenance, 05/14/22 16:20:00 EST, [facility], Partial fill upon patient request if the prescription is for a schedule II opioid drug., 166, cm, 05/14/22 15:20:00 EST, Height Start Date: 05/14/22 Status: OrderedAlcohol Wipes See Instructions, # 200 each, Refills [...] 04/29/22 20:12:00 EST, Route to Pharmacy Electronically, [facility], Partial fill upon patient request if the prescription is for a schedule II opio... Start Date: 04/29/22 Status: OrderedFreedom lite meter [place] lite meter, See Instructions, # 1 each, [...] , 04/01/22 9:07:00 ESTMARYELLEN APPROVED. Reference ID [id number]; 100 each per 25 day supply, Supply, [...] Refills, Maintenance, 04/01/22 9:12:00 EST, Chew Tablet, [facility], Partial fill upon patient request if the prescription is for a schedule II opioid drug., 1 tablet Chew Daily, 166, cm, 03/21/22 10... Start Date: 04/01/22 Status: OrderedPrenatal Multivitamins with Folic Acid 1 mg oral tablet 1 tablet, By Mouth, Daily, # 90 tablet, 0 Refills, Maintenance, 03/21/22 11:20:00 EDT, Tablet, [facility], Partial fill upon patient request if the prescription is for a schedule II opioid drug., 1 tablet By Mouth Daily, 166, cm, ... Start Date: 03/21/22 Status: Ordered Problem List Condition Confirmation Course Effective Dates Status Health Stat us Informant Asthma Confirmed Active History of Confirmed Active section Mild intermittent Confirmed Active asthma Nausea and vomiting Confirmed Active in Type 2 diabetes Confirmed Active mellitus in Confirmed Active Diabetes mellitus, Confirmed Active type II Social History Social History Type Response Tobacco Use: quit 4 years ago. Sex Patient Care team information Care Team PersonnelName: Emilee Tillman RN Position: S RN Member Role: Primary Care Nurse Name: Deysi Rollins RN Position: [facility] OB RN Member Role: Primary Care Nurse Name: Not on Staff, PCP Position: [facility] Physician (General Medicine) Member Role: PCP Care Team Related PersonsName: LAKIA BONILLA Address: home [address] [place] [id number] Name: DENISE WHITTAKER Name: ABELINO RASHID Address: home [address] [place] [address] Name: DOTTY SINGH Address: home [address] [place] [address]
--- OUTSIDE RECORDS SUMMARY | 2022-05-30 23:27 | XMS_ITS | Continuity of Care Document ---
:1990 Author Organization [facility] ic Address [address] [place] [address]- Care Team Providers Name Role Phone Not on Staff, PCP Primary Care Physician Unavailable Encounter [facility] Date(s): 04/01/22 - 05/01/[address] [address]- Allergies, Adverse Reactions, Alerts Substance Reaction Severity [...] Start Date: 04/29/22 Status: OrderedFreedom lite meter [place] lite meter, See Instructions, # 1 each, [...] PER DAY DURING THE , 04/01/22 9:07:00 MARYELLEN CABAN APPROVED. Reference ID [id number]; 100 each per 25 day supply, Supply, [...] Care Team PersonnelName: Deysi Rollins RN Position: [facility] OB RN Member Role: Primary Care Nurse Name: Not on Staff, PCP Position: [facility] Physician (General Medicine) Member Role: PCP Care Team Related PersonsName: LAKIA BONILLA Address: home [address] [place] [address] Name: DENISE WHITTAKER Name: ABELINO RASHID Address: home [address] [place] [address] Name: DOTTY SINGH Address: home [address] [place] [address]
--- OUTSIDE RECORDS SUMMARY | 2022-05-30 23:27 | XMS_ITS | Continuity of Care Document ---
:1990 Author Organization [facility] ic Address [address] [place] [address]- Care Team Providers Name Role Phone Not on Staff, PCP Primary Care Physician Unavailable Encounter [facility] Date(s): 03/24/22 - 04/30/[address] [address]- Attending Physician: Not on Staff, Attending MD Referring Physician: Not on Staff, Referring MD Allergies, Adverse Reactions, Alerts Substance Reaction Severity [...] 04/29/22 20:12:00 EST, Route to Pharmacy Electronically, [facility], Partial fill upon patient request if the prescription is for a schedule II opio... Start Date: 04/29/22 Status: OrderedFreedom lite meter [place] lite meter, See Instructions, # 1 each, [...] 04/01/22 9:07:00 MARYELLEN CABAN APPROVED. Reference ID [id number]; 100 each per 25 day supply, Supply, [...] Refills, Maintenance, 04/01/22 9:12:00 EST, Chew Tablet, [facility], Partial fill upon patient request if the prescription is for a schedule II opioid drug., 1 tablet Chew Daily, 166, cm, 03/21/22 10... Start Date: 04/01/22 Status: OrderedPrenatal Multivitamins with Folic Acid 1 mg oral tablet 1 tablet, By Mouth, Daily, # 90 tablet, 0 Refills, Maintenance, 03/21/22 11:20:00 EDT, Tablet, [facility], Partial fill upon patient [...] Care Team PersonnelName: Deysi Rollins RN Position: [facility] OB RN Member Role: Primary Care Nurse Name: Not on Staff, PCP Position: [facility] Physician (General Medicine) Member Role: PCP Care Team Related PersonsName: LAKIA BONILLA Address: home [address] [place] [address] Name: DENISE WHITTAKER Name: ABELINO RASHID Address: home [address] [place] [address] Name: DOTTY SINGH Address: home [address] [place] [address]
--- OUTSIDE RECORDS SUMMARY | 2022-05-30 23:28 | XMS_ITS | Continuity of Care Document ---
:1990 Author Organization [facility] Address [address] [place] [address]- Care Team Providers Name Role Phone Not on Staff, PCP Primary Care Physician Unavailable Encounter [facility] Date(s): 04/18/22 - 05/18/[address] [address]- Allergies, Adverse Reactions, Alerts Substance Reaction Severity Status Seafood Active Immunizations Given and Recorded Vaccine Date Status Refusal Reason tetanus/diphtheria/pertussis, acel(Tdap) 11/21/13 Given influenza virus vaccine, inactivated 07/19/13 Given Medications Albuterol (Eqv-Proventil HFA) 90 mcg/inh inhalation aerosol 2 puffs, Inhalation, Every 6 hours, # 8.5 Gm, 0 Refills, Maintenance, 05/14/22 16:20:00 EST, [facility], Partial fill upon patient request [...] 04/29/22 20:12:00 EST, Route to Pharmacy Electronically, [facility], Partial fill upon patient request if the prescription is for a schedule II opio... Start Date: 04/29/22 Status: OrderedFreedom lite meter [place] lite meter, See Instructions, # 1 each, [...] 04/01/22 9:07:00 MARYELLEN CABAN APPROVED. Reference ID [id number]; 100 each per 25 day supply, Supply, [...] 2 Refills, Maintenance, 04/01/22 9:12:00 EST, Chew Rafael, [facility], Partial fill upon patient request if the prescription is for a schedule II opioid drug., 1 tablet Chew Daily, 166, cm, 03/21/22 10... Start Date: 04/01/22 Status: OrderedPrenatal Multivitamins with Folic Acid 1 mg oral tablet 1 tablet, By Mouth, Daily, # 90 tablet, 0 Refills, Maintenance, 03/21/22 11:20:00 EDT, Tablet, [facility], Partial fill upon patient request [...] Care Nurse Name: Deysi Rollins RN Position: [facility] OB RN Member Role: Primary Care Nurse Name: Not on Staff, PCP Position: [facility] Physician (General Medicine) Member Role: PCP Care Team Related PersonsName: LAKIA BONILLA Address: [address] [address] Name: DENISE WHITTAKER Name: ABELINO RASHID Address: home [address] [place] [address] Name: DOTTY SINGH Address: home [address] [place] [address]
--- OUTSIDE RECORDS SUMMARY | 2022-05-30 23:28 | XMS_ITS | Continuity of Care Document ---
:1990 Author Organization [facility] ic Address [address] [place] [address]- Care Team Providers Name Role Phone Not on Staff, PCP Primary Care Physician Unavailable Encounter [facility] [id number] Date(s): 03/31/22 - 05/07/[address] [address]- Attending Physician: Not on Staff, Attending MD [...] 04/29/22 20:12:00 EST, Route to Pharmacy Electronically, [facility], Partial fill upon patient request if the prescription is for a schedule II opio... Start Date: 04/29/22 Status: OrderedFreedom lite meter [place] lite meter, See Instructions, # 1 each, [...] 04/01/22 9:07:00 MARYELLEN CABAN APPROVED. Reference ID [id number]; 100 each per 25 day supply, Supply, [...] Refills, Maintenance, 04/01/22 9:12:00 EST, Chew Tablet, [facility], Partial fill upon patient request if the prescription is for a schedule II opioid drug., 1 tablet Chew Daily, 166, cm, 03/21/22 10... Start Date: 04/01/22 Status: OrderedPrenatal Multivitamins with Folic Acid 1 mg oral tablet 1 tablet, By Mouth, Daily, # 90 tablet, 0 Refills, Maintenance, 03/21/22 11:20:00 EDT, Tablet, [facility], Partial fill upon patient [...] Member Role: PCP Care Team Related PersonsName: MICHELLEHAROONLAKIA Address: [address] [address] Name: DENISE WHITTAKER Name: ABELINO RASHID Address: home [address] [place] [address] Name: DOTTY SINGH Address: home [address] [place] [address]
[2022-05-30 23:38] VITALS: BP 104/61; PULSE 87; RESP 16; TEMP 37.1; O2SAT 97
[2022-05-30 23:42] LABS: MANUAL DIFF FLAG NO
[2022-05-30 23:43] LABS: Basophils Percent Auto 0.3 % (0-2); Eosinophils Absolute Auto 0.1 X10*3/uL (0.0-0.4); Eosinophils Percent Auto 0.6 % (0-4); Hematocrit 30.5 % (37.0-47.0); Hemoglobin 10.2 g/dl (12.0-16.0); Imm Gran Abs Auto 0.03 X10*3/uL (0.00-0.03); Imm Gran Pct Auto 0.3 % (0.0-0.4); Lymphocytes Absolute Auto 2.3 X10*3/uL (1.2-4.9); Lymphocytes Percent Auto 22.5 % (20-40); Mean Corpuscular HGB Conc 33.4 g/dl (31.0-35.0); Mean Corpuscular Hemoglobin 29.9 pg (27.0-33.0); Mean Corpuscular Volume 89.4 fL (80.0-98.0); Mean Platelet Volume 10.2 fL (9.4-12.3); Monocytes Absolute Auto 0.4 X10*3/uL (0.1-1.2); Monocytes Percent Auto 4.2 % (2-11); Neutrophils Absolute Auto 7.2 x10*3/uL (2.0-8.3); Neutrophils Percent Auto 72.1 % (45-73); Platelet Count 245 X10*3/uL (160-400); Red Blood Count 3.41 X10*6/uL (4.20-5.50); Red Cell Distribution Width 12.4 % (11.0-16.0)
[2022-05-31 00:03] LABS: Alanine Aminotransferase 9 U/L (0-31); Albumin Level 3.3 g/dL (3.5-5.0); Alkaline Phosphatase 60 U/L (39-117); Anion Gap 15 (12-20); Aspartate Amino Transferase 13 U/L (5-31); Bilirubin Total 0.2 mg/dL (0.0-1.0); Blood Urea Nitrogen 7 mg/dL (9-16); Calcium 8.7 mg/dL (8.4-10.2); Carbon Dioxide 24 mmol/L (22-29); Chloride 100 mmol/L (96-108); Creatinine Clr Calc Pharmacy 127.8; Estimated Glomerular Filt Rate > 60; Glucose Random 222 mg/dL (60-115); Potassium 3.6 mmol/L (3.3-5.1); Sodium 135 mmol/L (135-145)
[2022-05-31 00:35] LABS: HCG Quantitative 61325 mIU/mL
--- NOTE | 2022-05-31 00:41 | PC.NURSE ---
Pt states that vaginal bleeding began 05/30/22 at about 2130. Denies pain or any other symptoms. Pt states blood was 'not flowing', she discovered bleeding on towel after drying herself from showering and then wiped some more with toiplet paper and more blood was on the toilet paper.
--- NOTE | 2022-05-31 00:49 | ED.PREGNANCY ---
HPI - General Chief complaint: Vaginal Bleeding Stated complaint: Vaginal bleeding/16 wks preg Time Seen by Provider: 05/30/22 23:49 Source: patient Mode of arrival: ambulatory History of Present Illness HPI Narrative: 31-year-old female who is at 16 weeks gestation states that she has otherwise been feeling well, she did engage in sexual intercourse yesterday and then states that when she went home this evening at 21:00 she notes that she had blood on the toilet paper, and then a 2nd time later on. She denies any clots or contamination of her underwear and denies any associated abdominal cramping, fevers, chills, urinary symptoms. Related Data Previous Rx's Medication Instructions Recorded nitrofurantoin 100 mg PO Q12H 7 days #14 caps 10/21/20 monohydrate/macrocrystals 100 mg capsule (Macrobid) ondansetron HCl 4 mg tablet 4 mg PO Q8H PRN nausea and 10/21/20 (Zofran) vomiting #10 tabs phenazopyridine 200 mg tablet 200 mg PO TID PRN pain 6 doses #6 10/21/20 (Pyridium) tabs cyclobenzaprine 10 mg tablet 10 mg PO TID PRN muscle spasm #10 12/29/20 tabs ibuprofen 600 mg tablet 600 mg PO Q8H PRN pain #14 tabs 12/29/20 lidocaine 5 % topical patch 1 patch topical DAILY #15 ea 12/29/20 (Lidoderm) acetaminophen 500 mg tablet 1,000 mg PO QID PRN fever or pain 05/01/22 (Tylenol Extra Strength) #14 tabs ondansetron HCl 4 mg tablet 4 mg PO Q6-8H PRN nausea and 05/01/22 vomiting #20 tabs nitrofurantoin 100 mg PO Q12H 7 days #14 caps 05/31/22 monohydrate/macrocrystals 100 mg capsule (Macrobid) Allergies Allergy/AdvReac Type Severity Reaction Status Date / Time shellfish derived Allergy Severe SWELLING, Verified 10/21/20 16:24 [SHELLFISH DERIVED] DIFFICULTY BREATHING Review of Systems Review of Systems: Pertinent positives and negatives as stated in HPI [facility] Past Medical History Source: nursing notes reviewed Medical History Diabetes Social History Social History Alcohol intake: never Patient Tobacco Use Status: Never used Tobacco Smoked in Last 30 Days: No Use of substances other than those prescribed or required for medical reasons: No Advance Directives: No Advance Directives Information Provided: No Patient : Yes Physical Exam Vital Signs: Vital Signs: Last Vital Signs Temp 98.8 F 05/30/22 23:38 Pulse 87 05/30/22 23:38 Resp 16 05/30/22 23:38 BP 104/61 05/30/22 23:38 Pulse Ox 97 05/30/22 23:38 O2 Del Method 05/30/22 23:38 BMI result Body Mass Index 25.7 VITAL SIGNS: Reviewed. GENERAL: Well developed, well nourished, in no acute distress. HEAD: Normocephalic/atraumatic EYES: PERRLA, EOMI EARS: Ext canals without abnormality OROPHARYNX: no oral lesions noted, posterior pharynx clear NECK: Supple, no adenopathy LUNGS: Normal breath sounds. No adventitious sounds or accessory muscle use. SpO2<97> CARDIOVASCULAR: Regular rate and rhythm without noted murmurs ABDOMEN: Soft, non-tender, non-distended with bowel sounds. MUSCULOSKELETAL: No tenderness, deformities, or effusions noted on gross inspection. EXTREMITIES: No cyanosis, clubbing or edema. SKIN: Inspection of the skin reveals no rashes NEUROLOGIC: Alert and oriented x 4. Strength and sensation to light touch were grossly intact x 4. Medical Decision Making Medical Decision Making MDM Narrative: 31-year-old female with what I suspect is benign bleed secondary to recent sexual intercourse, but will evaluate with basic lab, ultrasound, viral testing, checking urinalysis. 0212: Preliminary ultrasound demonstrates heart tones -150, fetus is moving and fluid appears to be adequate. My review interpretations the urinalysis is the patient has a UTI and will receive initial antibiotics here in the emergency room and then be discharged with remaining course. Otherwise, there is no obvious evidence of systemic infection and anemia is chronically stable and likely associated with . Differential Diagnosis Differential Diagnoses: The differential diagnosis associated with the presentation includes UTI, miscarriage Lab Data MDM Lab Attestation statement: I reviewed the patient's lab results. Please see the above discussion 05/30/22 23:36 05/30/22 23:36 Labs: Lab Results 05/30/22 05/30/22 05/31/22 Range/Units 23:36 23:36 01:24 WBC 10.0 (4.8-10.8) X10*3/uL RBC 3.41 L (4.20-5.50) X10*6/uL Hgb 10.2 L (12.0-16.0) g/dl Hct 30.5 L (37.0-47.0) % MCV 89.4 (80.0-98.0) fL MCH 29.9 (27.0-33.0) pg MCHC 33.4 (31.0-35.0) g/dl RDW 12.4 (11.0-16.0) % Plt Count 245 (160-400) X10*3/uL MPV 10.2 (9.4-12.3) fL Immature Gran % (Auto) 0.3 (0.0-0.4) % Neut % (Auto) 72.1 (45-73) % Lymph % (Auto) 22.5 (20-40) % Williamson % (Auto) 4.2 (2-11) % Eos % (Auto) 0.6 (0-4) % Baso % (Auto) 0.3 (0-2) % Lymph # (Auto) 2.3 (1.2-4.9) X10*3/uL Williamson # (Auto) 0.4 (0.1-1.2) X10*3/uL Eos # (Auto) 0.1 (0.0-0.4) X10*3/uL Baso # (Auto) 0.0 (0.0-0.2) X10*3/uL Abs Immat Gran (auto) 0.03 (0.00-0.03) X10*3/uL Absolute Neuts (auto) 7.2 (2.0-8.3) x10*3/uL Absolute Nucleated RBC 0.000 (0.0-0.012) X10*3/uL Nucleated RBC % (auto) 0.0 (0.0-0.2) /100WBC Sodium 135 (135-145) mmol/L Potassium 3.6 (3.3-5.1) mmol/L Chloride 100 (96-108) mmol/L Carbon Dioxide 24 (22-29) mmol/L Anion Gap 15 (12-20) BUN 7 L (9-16) mg/dL Creatinine 0.61 (0.5-1.4) mg/dL Estim Creat Clear Calc 127.8 Estimated GFR > 60 Random Glucose 222 H (60-115) mg/dL Calcium 8.7 D (8.4-10.2) mg/dL Total Bilirubin 0.2 (0.0-1.0) mg/dL AST 13 (5-31) U/L ALT 9 (0-31) U/L Alkaline Phosphatase 60 (39-117) U/L Total Protein 6.0 L (6.5-8.0) g/dL Albumin 3.3 L D (3.5-5.0) g/dL Beta HCG, Quant 56141 mIU/mL Urine Color Yellow Urine Appearance Clear Urine pH 6.0 (5.0-9.0) Ur Specific [place] >= 1.030 H (1.005-1.025) Urine Protein Negative (Neg-Trace) mg/dL Urine Glucose (UA) >=1000 H (Negative) mg/dL Urine Ketones Trace (Negative) mg/dL Urine Blood Trace H (Negative) Urine Nitrite Negative (Negative) Ur Leukocyte Esterase Negative (Negative) Urine RBC 0-2 (0-2) /HPF Urine WBC 6-10 H (0-5) /HPF Ur Squamous Epith Cells 0-2 (0-2) /HPF Urine Bacteria None Seen (None Seen) Hyaline Casts 0-2 (0-2) /LPF Radiology Impression Radiologist Impression: My interpretation is in agreement with the radiologist's impression of imaging study. External Record Review External record reviewed: Outpatient record and Prior outpatient labs Chronic Conditions Patient?s care impacted by: Diabetes Discharge Plan Discharge Clinical Impression: , UTI (urinary tract infection) Patient Disposition: Home, Self-Care Instructions: (ED), Urinary Tract Infection in (ED) Additional Instructions: 1. Continue to drink plenty of fluids, take your vitamins and complete the entire course of antibiotics as ordered. 2. Follow-up with your OB doctor on Thursday morning. Return to the ER for any worsening symptoms of vaginal bleeding especially if you develop lower abdominal cramping. Prescriptions: New nitrofurantoin monohyd/m-cryst [Macrobid] 100 mg capsule 100 mg PO Q12H 7 Days Qty: 14 0RF Rx Instructions: must administer with a meal/food No Action nitrofurantoin monohyd/m-cryst [Macrobid] 100 mg capsule 100 mg PO Q12H 7 Days Qty: 14 0RF Rx Instructions: must administer with a meal/food ondansetron HCl [Zofran] 4 mg tablet 4 mg PO Q8H PRN (Reason: nausea and vomiting) Qty: 10 0RF Rx Instructions: Please dispense sublingual tablets phenazopyridine [Pyridium] 200 mg tablet 200 mg PO TID PRN (Reason: pain) Qty: 6 0RF cyclobenzaprine 10 mg tablet 10 mg PO TID PRN (Reason: muscle spasm) Qty: 10 0RF lidocaine [Lidoderm] 5 % adhesive patch,medicated 1 patch topical DAILY Qty: 15 0RF Rx Instructions: leave on most painful area for up to 12 hrs ibuprofen 600 mg tablet 600 mg PO Q8H PRN (Reason: pain) Qty: 14 0RF ondansetron HCl 4 mg tablet 4 mg PO Q6-8H PRN (Reason: nausea and vomiting) Qty: 20 0RF acetaminophen [Tylenol Extra Strength] 500 mg tablet 1,000 mg PO QID PRN (Reason: fever or pain) Qty: 14 0RF
[2022-05-31 01:31] LABS: Appearance Urine Clear; Color Urine Yellow; Glucose Urine UA >=1000 mg/dL (Negative); Leukocyte Esterase Urine Negative (Negative); Nitrite Urine Negative (Negative); Specific Gravity - Urine >= 1.030 (1.005-1.025); UMIC TRIGGER UACC YES; Urine Blood Trace (Negative); Urine Ketones Trace mg/dL (Negative); Urine Protein Negative (Neg-Trace)
[2022-05-31 01:36] LABS: Bacteria Urine None Seen (None Seen); Hyaline Casts Urine 0-2 /LPF (0-2); RBC Urine 0-2 /HPF (0-2); Squamous Epithelial Cell Urine 0-2 /HPF (0-2); UACC Culture Trigger YES
--- NOTE | 2022-05-31 01:38 | PC.NURSE ---
Pt alert and oriented, no apparent distress, no evidence of bleeding at this time; will continue to monitor
--- NOTE | 2022-05-31 01:40 | PC.NURSE ---
Pt denies pain, cramping and any other possible associated symptoms with vaginal bleeding; pt denies bleeding at this time
[2022-05-31] MEDS: Nitrofurantoin Monohyd/M-Cryst 100 MG CAPSULE PO (02:19)
== END 2022-05-31 02:23 | disposition home or self-care (01) ==
PROVIDERS: Emergency Provider Student in an Organized Health Care Education/Training Program
DX: O20.9 Hemorrhage in early pregnancy, unspecified (principal); Z3A.16 16 weeks gestation of pregnancy; Z79.899 Other long term (current) drug therapy
CPT/HCPCS: 36415; 76815; 80053; 81001; 84702; 85025; 87086; 87088; 87186; 99284